=== PATIENT | female | born 1950 | race Caucasian/White ===

== ENCOUNTER → 2017-10-09 | Outpatient (CLI) | payer MEDICARE, OTHER ==
[~2017-10-09] MED LIST: AMLO-511 PO; DICL2100G TP; LOSA25TA21 PO; RIVA15T PO
== END | disposition home or self-care (01) ==
LOC: RADMN 10:26
PROVIDERS: ATTEND Physician Assistant
DX: K80.20 Calculus of gallbladder without cholecystitis without obstruction (principal)
CPT/HCPCS: 76700

== ENCOUNTER 2017-11-25 16:42 | Emergency (ER) | payer MEDICARE, OTHER ==
[~2017-11-25] VITALS: Ht 157.5 cm; Wt 102.3 kg
[2017-11-25] MEDS ORDERED: RIVA15T PO (16:50)
[2017-11-25] MEDS ORDERED: AMLO-511 PO (16:50)
[2017-11-25] MEDS ORDERED: LOSA25TA21 PO (16:50)
[2017-11-25] MEDS ORDERED: DICL2100G TP (16:54)
[2017-11-25] MEDS ORDERED: ONDANSETRON HCL 4 MG/2 ML VIAL IVP ONE (17:45)
[2017-11-25] MEDS ORDERED: MORPHINE SULFATE 4 MG/ML SYRINGE IVP ONE (17:45)
[2017-11-25] MEDS ORDERED: ACETAMINOPHEN 500 MG TABLET PO ONE (17:45)
[2017-11-25 18:47] VITALS: BP 154/79
== END 2017-11-25 18:55 | disposition home or self-care (01) ==
LOC: EMS 16:43
DX: S16.1XXA Strain of muscle, fascia and tendon at neck level, initial encounter (principal); S46.911A Strain of unspecified muscle, fascia and tendon at shoulder and upper arm level, right arm, initial encounter; I48.91 Unspecified atrial fibrillation; I10 Essential (primary) hypertension; Z87.442 Personal history of urinary calculi; X58.XXXA Exposure to other specified factors, initial encounter; Y93.84 Activity, sleeping; Y92.89 Other specified places as the place of occurrence of the external cause; Y99.8 Other external cause status
CPT/HCPCS: 96374; 96375; 99284; J2270; J2405